=== PATIENT | male | born 1940 | race Caucasian/White ===

== ENCOUNTER → 2016-12-01 | Outpatient (CLI) | payer OTHER | END | disposition home or self-care (01) | LOC: PCVCCLINIC 13:23 | PROVIDERS: ATTEND Internal Medicine Cardiovascular Disease | DX: E78.00 Pure hypercholesterolemia, unspecified (principal); I10 Essential (primary) hypertension; I71.2 Thoracic aortic aneurysm, without rupture; I73.9 Peripheral vascular disease, unspecified; J44.9 Chronic obstructive pulmonary disease, unspecified; K21.9 Gastro-esophageal reflux disease without esophagitis; I25.10 Atherosclerotic heart disease of native coronary artery without angina pectoris | CPT/HCPCS: 80061; 93005; G0463 ==

== ENCOUNTER → 2017-01-04 | Outpatient (CLI) | payer OTHER | END | disposition home or self-care (01) | LOC: PCVCIMAG 10:18 | PROVIDERS: ATTEND Internal Medicine Cardiovascular Disease | DX: I70.213 Atherosclerosis of native arteries of extremities with intermittent claudication, bilateral legs (principal); E78.00 Pure hypercholesterolemia, unspecified; I10 Essential (primary) hypertension; I25.10 Atherosclerotic heart disease of native coronary artery without angina pectoris | CPT/HCPCS: 93325; 93351; 93925 ==

== ENCOUNTER → 2017-10-02 | Outpatient (CLI) | payer OTHER | END | disposition home or self-care (01) | LOC: PCVCIMAG 14:26 | DX: I65.23 Occlusion and stenosis of bilateral carotid arteries (principal); I25.10 Atherosclerotic heart disease of native coronary artery without angina pectoris; I10 Essential (primary) hypertension; I73.9 Peripheral vascular disease, unspecified; I77.9 Disorder of arteries and arterioles, unspecified; F17.210 Nicotine dependence, cigarettes, uncomplicated; Z79.82 Long term (current) use of aspirin | CPT/HCPCS: 80061; 93005; 93880; G0463 ==

== ENCOUNTER → 2018-05-16 | Outpatient (CLI) | payer OTHER ==
--- NOTE | 2018-05-16 22:29 | PCVCIMAG ---
EXAM: BILATERAL LOWER EXTREMITY ARTERIAL DUPLEX INDICATION: Peripheral Arterial Disease. Leg pain. FINDINGS: Right Leg: Common femoral and profunda femoral arteries are patent. Increased systolic velocity of 440 cm/s mid superficial femoral artery within prior stent consistent with 90% restenosis. Popliteal artery is patent. 60% stenosis proximal anterior tibial artery. Posterior tibial artery is occluded throughout and distal anterior tibial artery is occluded. Peroneal artery is patent. Left Leg: Common femoral and profunda femoral arteries are patent. Increased systolic velocity 381 cm/s mid superficial femoral artery within the midportion of a prior stent consistent with 80% restenosis. Popliteal artery is patent. The anterior tibial and posterior tibial arteries are occluded. Peroneal artery is patent. IMPRESSION: 90% restenosis mid right superficial femoral artery within the midportion of a prior stent. Occlusion of the right anterior and posterior tibial arteries. 80% restenosis mid left superficial femoral artery within the midportion of a prior stent. Occlusion of the left anterior and posterior tibial arteries. LOC:OFFICE
== END | disposition home or self-care (01) ==
LOC: PCVCIMAG 13:16
PROVIDERS: ATTEND Internal Medicine Cardiovascular Disease
DX: I73.9 Peripheral vascular disease, unspecified (principal)
CPT/HCPCS: 93925

== ENCOUNTER → 2018-05-27 | Outpatient (CLI) | payer OTHER ==
[~2018-05-27] MED LIST: DIAZEPAM 10 MG TABLET. ONE; EPTIFIBATIDE BOLUS 2,000 MCG/ML 10ML VIAL. IV ONE; HEPARIN for ARTERIAL LINE 1,500 ML ONE; HEPARIN for SUB-Q USE 5,000 UNIT/ML VIAL. SQ ONE; IODIXANOL 270 MG/ML 100 ML VIAL. ONE; IOHEXOL 350 MG/ML 100 ML VIAL. ONE; IV NORMAL SALINE 1000ML BAG 1,000 ML ONE; LIDOCAINE 1%/EPI 1:100,000 20 ML VIAL. ONE; MIDAZOLAM HCL/PF 2 MG/2 ML VIAL. ONE; WATER FOR INJECTION,STERILE 10 ML IJ ONE; ceFAZolin SODIUM 1 GM VIAL ONE; fentaNYL PF VIAL 100 MCG/2 ML VIAL ONE
--- NOTE | 2018-05-27 12:47 | PCVCINTER ---
EXAM: 1. AORTOGRAM AND BILATERAL LOWER EXTREMITY RUNOFF ANGIOGRAM 2. BILATERAL RENAL ANGIOGRAPHY 3. RIGHT SUPERFICIAL FEMORAL ARTERY ATHERECTOMY AND DRUG COATED BALLOON ANGIOPLASTY. 4. SECONDARY THROMBECTOMY RIGHT POPLITEAL ARTERY. INDICATION: Peripheral arterial disease. Coronary artery disease. Right leg claudication. Hypertension. Renal atherosclerosis. No prior catheter based angiographic study is available. A full diagnostic angiogram study is performed today and the decision to intervene is based on this diagnostic study. PROCEDURE: Procedure and risks of angiography intervention is appropriate including limb loss stroke and were discussed with the patient's family and consent obtained. The patient's left groin was prepped in the normal sterile fashion. IV conscious sedation was used throughout procedure with appropriate monitoring from 11:00 AM through 12:00 PM. Ultrasound was used to interrogate the left groin and showed the left common femoral artery to be patent. A permanent spot film was obtained. Under ultrasound guidance access into the left common femoral artery was obtained and a 5 Congolese sheath was placed. Through this a 5 Congolese flush catheter was placed into the abdominal aorta at the level of the renal arteries and AP aortogram was performed. Catheter was positioned at the aortic bifurcation and both oblique views of the pelvis were obtained. Catheter was positioned into the left external iliac artery and left leg runoff angiography was performed. Catheter was exchanged for a visceral catheter was placed into the right renal arteries and right renal angiograms obtained. Catheter was placed into the the left renal arteries and left renal angiograms were obtained. Catheter was advanced to the level of the right external iliac artery and right leg runoff angiography was obtained. Patient was given 4500 units of heparin. A 6 Congolese crossover sheath was placed via the left groin to the level of the right common femoral artery. Atherectomy of the right superficial femoral artery was performed with 2.0 mm Spectranetics laser atherectomy catheter in the standard fashion. Following atherectomy small areas of thrombus were observed and because of this secondary thrombectomy throughout the right superficial femoral artery was carried out with mechanical suction thrombectomy catheter in the standard fashion. Minimal debris was removed. Following this drug coated balloon angioplasty of the right superficial femoral artery was carried out with a 6 x 120 SpectranetEnergreen Sloane Olvin FILLER PICKER catheter. Follow-up angiogram was performed. Catheters and wires removed. Sheath was removed and hemostasis obtained using the FISH device. No immediate complications. FINDINGS: Aortogram: There is one right and one left renal artery. Mild ectasia infrarenal abdominal aorta. Mild aneurysmal dilatation suprarenal abdominal aorta. No aortic stenosis. Pelvis: Mild plaque right and left common iliac arteries without significant stenosis. Both internal iliac arteries are patent. The right and left external iliac arteries are patent. The right and left common femoral and profunda femoral arteries are patent. Right renal artery: Moderate plaque proximal vessel results in 40% stenosis. Stenosis. Left renal artery: Mild plaque proximal vessel does not cause significant stenosis. Right leg: Shelflike 90% stenosis mid superficial femoral artery within the midportion of a prior stent. Otherwise previous stent throughout the superficial femoral artery maintaining good patency. The popliteal artery shows adequate patency throughout its length. The anterior tibial and posterior tibial arteries are occluded. There is segmental occlusion of the proximal tibioperoneal trunk which refills into the peroneal artery which is the dominant runoff vessel showing adequate patency to refill the distal posterior tibial artery and plantar arteries. Left le% stenosis mid/upper superficial femoral artery the distal margin of a prior stent. Moderately extensive plaque resulting in areas of 95% stenosis mid to distal muscogee superficial femoral artery. Popliteal artery shows good patency until its distal portion where there is unchanged chronic occlusion. The anterior and posterior tibial arteries are occluded throughout the majority of their length. There is refilling of the upper peroneal artery which is in the dominant runoff vessel to the distal tibia where collaterals refill the distal posterior tibial artery and distal anterior tibial artery which runoff into moderate-sized dorsalis pedis and plantar arteries. Right superficial femoral artery artery: Following procedure as above vessel shows satisfactory patency. IMPRESSION: 90% restenosis mid right superficial femoral artery within prior stent was treated as above with good patency restored. Areas of 95% stenosis mid/distal left superficial femoral artery as detailed above. Plan is for the patient return next week for correction of this. Unchanged occlusion of the right and left anterior and posterior tibial arteries. Unchanged occlusion of the proximal right tibial peroneal trunk and distal left popliteal artery. LOC:[id number]
--- NOTE | 2018-05-29 13:06 | PCVCINTER ---
APPROVED REPORT Study performed: 05/27/2018 11:48:02 Patient Details Patient Status: Out-Patient Room #: 2 The patient is a 77 year-old Male Event Personnel Lisa Phillips MD, Nicko Grimes MD, , Kanwal Vieira RT(R)(), Raul Joshi RT(R)(), Mamie Stratton RN Risk Factors Dysplipidemia (Type: 1), Peripheral Vascular Disease, Hypercholesterolemia, Last Creatanine 0.9Tobacco History (Current/Recent(w/in 1 year)) Previous Procedures/Diagnoses Previous PCI, Previous Femoral Procedure Procedure Narrative The patient was brought electively to the Cardiac Catheterization Laboratory and was prepped and draped in a sterile manner. The right coronary system was accessed and visualized with a JR4 catheter. The left coronary system was accessed and visualized with a JL4 catheter. The left ventricle was accessed and visualized with a Pigtail catheter. Left ventriculogram was performed in ROQUE projection. Closure device was deployed with a 6 Fr Fish. Hemostasis was obtained with manual pressure following sheath removal without any complications. The patient tolerated the procedure well and there were no complications associated with the procedure. There was no hematoma. Hemodynamics The aortic pressure is 118/59 mmHg with a mean of 85 mmHg. The left ventricular pressure is 115/0 mmHg with a mean of 1 mmHg. Conclusion #1 normal left ventricular size and systolic function EF 60% #2 left main moderate size giving rise to LAD and circumflex widely patent #3 the LAD proximally occludes after a large septal fisher trammel net and a diagonal branch. It is collaterally fill from left to left filling #4 circumflex OM is at least a codominant system with significant distribution also filling the LAD which is occluded no occlusive disease 60-70% proximal OM lesion prior to a previously placed stent will follow #5 codominant and relatively small distal PDA off of the RCA is diffusely diseased Recommendations and plan. Continue aggressive risk factor modification. There is no indication for coronary intervention. It is not likely that any attempt at this LAD occlusion would be of any significant benefit. LV function is preserved Patient remains asymptomatic LV function is normal.
== END | disposition home or self-care (01) ==
LOC: PCVCINTER 09:16
PROVIDERS: ATTEND Nuclear Medicine Nuclear Cardiology
DX: I70.213 Atherosclerosis of native arteries of extremities with intermittent claudication, bilateral legs (principal); I70.1 Atherosclerosis of renal artery; I25.10 Atherosclerotic heart disease of native coronary artery without angina pectoris; I10 Essential (primary) hypertension; I77.811 Abdominal aortic ectasia; K21.9 Gastro-esophageal reflux disease without esophagitis; E78.00 Pure hypercholesterolemia, unspecified; Z98.890 Other specified postprocedural states; Z82.49 Family history of ischemic heart disease and other diseases of the circulatory system; F17.210 Nicotine dependence, cigarettes, uncomplicated; Z72.89 Other problems related to lifestyle; Z88.8 Allergy status to other drugs, medicaments and biological substances; Z79.899 Other long term (current) drug therapy
CPT/HCPCS: 36252; 37186; 37225; 75716; 76937; 93458; 99152; 99153; C1725; C1751; C1757; C1760; C1769; C1885; C1894; C2623; J0690; J1644; J2250; J3010; J3490; J7030; Q9967; 37226; J1327

== ENCOUNTER → 2018-06-06 | Outpatient (CLI) | payer OTHER ==
[~2018-06-06] MED LIST changes: -HEPARIN for ARTERIAL LINE 1,500 ML ONE; -IOHEXOL 350 MG/ML 100 ML VIAL. ONE; +hydrALAZINE 20 MG/ML VIAL. ONE
--- NOTE | 2018-06-06 13:45 | PCVCINTER ---
EXAM: 1. AORTOGRAM AND BILATERAL LOWER EXTREMITY RUNOFF ANGIOGRAM 2. BILATERAL RENAL ANGIOGRAPHY 3. LEFT SUPERFICIAL FEMORAL ARTERY ATHERECTOMY AND STENT PLACEMENT. 4. SECONDARY THROMBECTOMY LEFT SUPERFICIAL FEMORAL ARTERY. 5. DRUG COATED BALLOON ANGIOPLASTY LEFT SUPERFICIAL FEMORAL ARTERY. INDICATION: Peripheral arterial disease. Coronary artery disease. Left leg claudication. Hypertension. Renal atherosclerosis. No prior catheter based angiographic study is available. A full diagnostic angiogram study is performed today and the decision to intervene is based on this diagnostic study. PROCEDURE: Procedure and risks of angiography intervention is appropriate including limb loss stroke and were discussed with the patient's family and consent obtained. The patient's right groin was prepped in the normal sterile fashion. IV conscious sedation was used throughout procedure with appropriate monitoring from 10:15 AM through 11:30 AM. Ultrasound was used to interrogate the right groin and showed the right common femoral artery to be patent. A permanent spot film was obtained. Under ultrasound guidance access into the right common femoral artery was obtained and a 5 English sheath was placed. Through this a 6 English crossover sheath was placed via the right groin to the level of the left common femoral artery. Atherectomy of the left superficial femoral artery was performed with 2.0 mm Spectranet3G Multimedia laser atherectomy catheter in the standard fashion. Following atherectomy small areas of thrombus were observed and because of this secondary thrombectomy throughout the left superficial femoral artery was carried out with mechanical suction thrombectomy catheter in the standard fashion. Minimal debris was removed. Following this drug coated balloon angioplasty of the left superficial femoral artery was carried out with a 6 x 120 and 5 x 120 Spectranetics Sloane Olvin GANG SUPERVISOR catheters. Stent placement across the areas of high-grade stenosis in the left superficial femoral artery was carried out with a 6 x 100 and 6 x 80 Smart control stents with subsequent dilatation to 6.0 mm. Follow-up angiogram was performed. Catheters and wires removed. Sheath was removed and hemostasis obtained using the FISH device. No immediate complications. FINDINGS: Left superficial femoral artery: Following procedure as above vessel shows good patency. IMPRESSION: Areas of restenosis and de malcolm stenoses were treated as above with good patency restored. LOC:[id number]
== END | disposition home or self-care (01) ==
LOC: PCVCINTER 13:54
PROVIDERS: ATTEND Nuclear Medicine Nuclear Cardiology
DX: I70.212 Atherosclerosis of native arteries of extremities with intermittent claudication, left leg (principal); I70.1 Atherosclerosis of renal artery; I10 Essential (primary) hypertension; I25.10 Atherosclerotic heart disease of native coronary artery without angina pectoris; K21.9 Gastro-esophageal reflux disease without esophagitis; E78.00 Pure hypercholesterolemia, unspecified; Z98.890 Other specified postprocedural states; Z82.49 Family history of ischemic heart disease and other diseases of the circulatory system; F17.210 Nicotine dependence, cigarettes, uncomplicated; Z72.89 Other problems related to lifestyle; Z88.8 Allergy status to other drugs, medicaments and biological substances; Z79.899 Other long term (current) drug therapy; Z79.82 Long term (current) use of aspirin
CPT/HCPCS: 37186; 37227; 76937; 99152; 99153; C1725; C1751; C1757; C1760; C1769; C1876; C1885; C1887; C1894; C2623; J0360; J0690; J1327; J1644; J2250; J3010; J3490; J7030; Q9966; Q9967